=== PATIENT | male | born 1965 | race Caucasian/White ===

== ENCOUNTER 2020-05-10 10:01 | Day surgery (SDC) | payer OTHER ==
[~2020-05-10 10:01] MED LIST: Lactated Ringers 1,000 ML IV SCH; Midazolam 1 MG/ML 2 ML SDV ONE; Ondansetron 4 MG/2 ML SDV ONE; Propofol 200 MG/20 ML SDV ONE; Sodium Chloride 0.9% 10 ML SDV IV PRN; Sodium Chloride 0.9% 10 ML Syringe FLUSH PRN; Sodium Chloride 0.9% 2.5 ML Syringe FLUSH PRN; fentaNYL 100 MCG/2 ML SDV ONE
--- NOTE | 2020-05-10 10:34 | PCM.PREANE ---
Preanesthetic Assessment - Anesthesia/Transfusion/Family Hx Anesthesia History: Prior Anesthesia Without Reaction Family History of Anesthesia Reaction: No Transfusion History: No Prior Transfusion(s) - Review of Systems General: No Symptoms Pulmonary: No Symptoms Cardiovascular: No Symptoms Neurological: No Symptoms Other: Reports: None - Physical Assessment NPO Status Date: 05/09/20 Vital Signs: Last Vital Signs Temp 97.7 F 05/10/20 10:22 Pulse 68 05/10/20 10:22 Resp 16 05/10/20 10:22 BP 149/94 H 05/10/20 10:22 Pulse Ox 97 05/10/20 10:22 Height: 6 ft Weight: 75.75 kg ASA Class: 2 Mental Status: Alert & Oriented x3 Airway Class: Mallampati = 1 Dentition: Reports: Normal Dentition ROM/Head Extension: Full Lungs: Clear to Auscultation, Normal Respiratory Effort Cardiovascular: Regular Rate, Regular Rhythm - Allergies Allergies/Adverse Reactions: Allergies Allergy/AdvReac Type Severity Reaction Status Date / Time No Known Allergies Allergy Verified 05/07/20 15:02 - Blood Blood Available: No - Anesthesia Plan Pre-Op Medication Ordered: None - Acknowledgements Anesthesia Type Planned: General Anesthesia (tiva) Pt an Appropriate Candidate for the Planned Anesthesia: Yes Alternatives and Risks of Anesthesia Discussed w Pt/Guardian: Yes Pt/Guardian Understands and Agrees with Anesthesia Plan: Yes PreAnesthesia Questionnaire HEENT History: Reports: Other (See Below) Other HEENT History: wears glasses Cardiovascular History: Reports: Hypertension Gastrointestinal History: Reports: PUD Psychiatric History: Reports: Anxiety - Past Surgical History GI Surgical History: Reports: None Musculoskeletal Surgical History: Reports: Arthroscopic Knee, Other (See Below) Other Musculoskeletal Surgeries/Procedures:: surgery on hand- denies hardware - SUBSTANCE USE Tobacco Use Status *Q: Current Every Day Tobacco User Tobacco Use Within Last Twelve Months: Cigars Recreational Drug Use History: Yes - HOME MEDS Home Medications: Home Meds Cholecalciferol (Vitamin D3) [Vitamin D3] 1,000 unit PO DAILY 05/07/20 [History] Famotidine [Pepcid] 20 mg PO BID 05/07/20 [History] Sertraline HCl 20 mg PO DAILY 05/07/20 [History] amLODIPine Besylate [Amlodipine Besylate] 5 mg PO BEDTIME 05/07/20 [History] lisinopriL [Lisinopril] 20 mg PO QAM 05/07/20 [History] - CURRENT (IN HOUSE) MEDS Current Meds: Current Medications Lactated Ringer's (Ringers, Lactated) 1,000 mls @ 125 mls/hr IV ASDIRECTED RAJENDRA Sodium Chloride (Saline Flush) 10 ml FLUSH ASDIRECTED PRN PRN Reason: Keep Vein Open Sodium Chloride (Saline Flush) 2.5 ml FLUSH ASDIRECTED PRN PRN Reason: Keep Vein Open Sodium Chloride (Saline Flush) 10 ml FLUSH ASDIRECTED PRN PRN Reason: Keep Vein Open Sodium Chloride (Saline Flush) 2.5 ml FLUSH ASDIRECTED PRN PRN Reason: Keep Vein Open Sodium Chloride (Normal Saline) 10 ml IV ASDIRECTED PRN PRN Reason: IV Use Discontinued Medications Fentanyl (Sublimaze) Confirm Administered Dose 100 mcg .ROUTE .STK-MED ONE Stop: 05/10/20 08:44 Lidocaine HCl (Xylocaine-Mpf 1%) Confirm Administered Dose 10 ml .ROUTE .STK-MED ONE Stop: 05/10/20 08:44 Midazolam HCl (Versed 1 Mg/Ml) Confirm Administered Dose 2 mg .ROUTE .STK-MED ONE Stop: 05/10/20 08:44 Ondansetron HCl (Zofran) Confirm Administered Dose 4 mg .ROUTE .STK-MED ONE Stop: 05/10/20 08:44 Propofol (Diprivan 20 Ml) Confirm Administered Dose 400 mg .ROUTE .STK-MED ONE Stop: 05/10/20 08:44
--- NOTE | 2020-05-10 12:49 | PCM.OPNOTE ---
- General Post-Op/Procedure Note Date of Surgery/Procedure: 05/10/20 Operative Procedure(s): Diagnostic EGD and colonoscopy Findings: Normal appearing EGD, ascending colon polyp Pre Op Diagnosis: Hematemesis, Epigastric pain, screening colon Post-Op Diagnosis: Normal appearing EGD, ascending colon polyp Anesthesia Technique: MAC Primary Surgeon: Dorothea Mckinley Condition: Good
--- NOTE | 2020-05-10 13:14 | PCM48HPAN ---
Post Anesthesia Note - EVALUATION WITHIN 48HRS OF ANESTHETIC Vital Signs in Normal Range: Yes Patient Participated in Evaluation: Yes Respiratory Function Stable: Yes Airway Patent: Yes Cardiovascular Function Stable: Yes Hydration Status Stable: Yes Pain Control Satisfactory: Yes Nausea and Vomiting Control Satisfactory: Yes Mental Status Recovered: Yes Vital Signs: Last Vital Signs Temp 36.5 C 05/10/20 10:22 Pulse 56 L 05/10/20 12:59 Resp 18 05/10/20 12:59 BP 112/74 05/10/20 12:59 Pulse Ox 98 05/10/20 12:59
--- NOTE | 2020-05-10 13:22 | PCM48HPAN ---
Post Anesthesia Note - EVALUATION WITHIN 48HRS OF ANESTHETIC Vital Signs in Normal Range: Yes Patient Participated in Evaluation: Yes Respiratory Function Stable: Yes Airway Patent: Yes Cardiovascular Function Stable: Yes Hydration Status Stable: Yes Pain Control Satisfactory: Yes Nausea and Vomiting Control Satisfactory: Yes Mental Status Recovered: Yes Vital Signs: Last Vital Signs Temp 97.7 F 05/10/20 10:22 Pulse 56 L 05/10/20 12:59 Resp 18 05/10/20 12:59 BP 112/74 05/10/20 12:59 Pulse Ox 98 05/10/20 12:59
--- NOTE | 2020-05-10 19:14 | OR ---
SURGEON: DOROTHEA MCKINLEY MD DATE OF PROCEDURE: 05/10/2020 PREOPERATIVE DIAGNOSES: Epigastric pain, hematemesis, screening colonoscopy. POSTOPERATIVE DIAGNOSES: 1. Normal-appearing esophagogastroduodenoscopy. 2. Ascending colon polyp. PROCEDURES PERFORMED: Diagnostic esophagogastroduodenoscopy and colonoscopy. PRIMARY SURGEON: Dorothea Mckinley MD ANESTHESIA: MAC. INSTRUMENT USED: Olympus endoscope and colonoscope. EXTENT OF EXAM: To the second portion of duodenum, to the cecum. PREPARATION: Good. LIMITATIONS: None. INDICATIONS FOR EXAMINATION: The patient is a 54-year-old male who presents with complaints of epigastric pain as well as hematemesis. He has never had a colonoscopy. I explained the need for diagnostic EGD as well as screening colonoscopy. I explained the procedures, expected perioperative course, and the risks. He verbalized understanding and wishes to proceed. PROCEDURE IN DETAIL: The patient was brought into the endoscopy suite and placed in a left lateral decubitus position. A time-out was completed verifying the patient's name, age, date of , allergies, and procedure to be performed. Monitored anesthesia care was induced and continuous oxygen was provided via nasal cannula throughout the procedure. A bite block was placed in the patient's mouth. After adequate sedation was achieved, a well-lubricated endoscope was placed in the patient's mouth and advanced under direct visualization to the second portion of duodenum. This appeared normal and a photograph was taken. The scope was then fully withdrawn, and I inspected the mucosa of the upper GI tract. The first portion of duodenum appeared normal with no signs of ulcers or healing ulcers. A photograph was taken. The scope was brought into the stomach, a photograph was taken of the pylorus and GE junction. There was a questionable small hiatal hernia. The gastric mucosa itself had no signs of overt gastritis or ulceration. Biopsies were taken of the gastric antrum, body, and fundus and sent for histologic review and H pylori testing. The scope was then brought into the distal esophagus and a photograph was taken of the Z-line, this appeared grossly normal. I did not see any evidence of a hiatal hernia from this angle. Biopsy was taken of the esophageal mucosa 1 cm above the Z-line and sent to pathology, labeled as esophagus. The remainder of the esophagus was free of pathology. The scope was removed and this portion of procedure terminated. A digital rectal exam was performed. This exam was within normal limits. A well-lubricated colonoscope was inserted in the rectum and advanced under direct visualization to the level of the cecum. The cecum was identified by both visual and anatomic landmarks. A photograph was taken of the cecal cap; however, I was unable to retroflex the scope within the cecum. The scope was then fully withdrawn while examining the color, texture, anatomy, and integrity of the mucosa from the cecum to the anal canal. The patient was found to have a small sessile ascending colon polyp in the midportion of the ascending colon. This was removed in piecemeal fashion using cold biopsy forceps. Otherwise, the colon appeared normal. The scope was brought into the rectum and retroflexed to allow visualization of the anal canal opening. This appeared normal and a photograph was taken. The scope was straightened out and fully withdrawn. The cecum to anus time was 13 minutes. The patient tolerated the procedure well and was transferred to the PACU in stable condition. ENDOSCOPIC DIAGNOSES: 1. Normal-appearing esophagogastroduodenoscopy. 2. Ascending colon polyp. RECOMMENDATIONS: We will have the patient continue to take Pepcid. I will follow up on the biopsy results in 2 weeks in clinic. ZHANG TORRE /[id number]
== END 2020-05-10 13:17 | disposition home or self-care (01) ==
LOC: MW.SDS 10:01
PROVIDERS: ATTEND Surgery
DX: Z12.11 Encounter for screening for malignant neoplasm of colon (principal); D12.2 Benign neoplasm of ascending colon; K92.0 Hematemesis; R10.13 Epigastric pain; I10 Essential (primary) hypertension; Z79.899 Other long term (current) drug therapy; Z98.890 Other specified postprocedural states; Z87.891 Personal history of nicotine dependence
CPT/HCPCS: 43239; 45380; J2250; J2405; J2704; J3010; J7120; 00813; 88305; 88312